=== PATIENT | male | born 1940 | race Caucasian/White ===

== ENCOUNTER 2017-05-11 08:25 | Outpatient (CLI) | payer MEDICARE, BC ==
[2017-05-11] MEDS ORDERED: Lidocaine 1% PF 10 ML AMP ONE (09:00)
[2017-05-11] MEDS ORDERED: EPINEPHrine 1 MG/ML AMP ONE (09:00)
[2017-05-11] MEDS ORDERED: Iopamidol 300 61% 50 ML VIAL FS ONE (09:00)
[2017-05-11] MEDS ORDERED: Sodium Chloride 0.9% 50 ML BAG ONE (09:00)
--- NOTE | 2017-05-11 13:29 | CT ---
CT ARTHROGRAM OF THE RIGHT SHOULDER: INDICATION: Right shoulder pain. TECHNIQUE: Multiple CT images were obtained after administration of a dilute Isovue solution within the right gl enohumeral joint. Multiplanar reformatted images were constructed from the raw data. FINDINGS: There is a full-thickness disruption of the supraspinatus with retraction to the level of the superio r humeral head. There is full-thickness tear extension to the anterior infraspinatus. There is intr atendinous delamination involving the anterior and mid infraspinatus extending up to the musculotendi nous junction. There is moderate to severe supraspinatus and infraspinatus muscular atrophy. The in traarticular course of the long head of the biceps tendon is not well seen and is felt to be related to complete disruption with retraction into the level of the bicipital groove. There is moderate to severe AC joint osteoarthrosis with a prominent inferior projecting osteophyte off of this clavicle c ausing moderate encroachment on the subjacent supraspinatus. Subscapularis appears intact. There is moderate osteoarthrosis of the glenohumeral joint. There are small marginal osteophytes affecting t he glenoid. There are calcified pleural plaques involving the right hemithorax. There is scattered emphysema. There are scattered coronary artery calcifications. There is no definite acute osseous a bnormality. IMPRESSION: 1. Full-thickness tear of the supraspinatus with retraction to the level of the superior humeral hea d. There is also a tear extension of the anterior infraspinatus with intratendinous delamination see n involving the anterior to mid aspect of the infraspinatus. There is moderate muscular atrophy of t he supraspinatus and infraspinatus. 2. Complete tear of the long head of the biceps with retraction to the level of the superior bicipit al groove. 3. Moderate glenohumeral osteoarthritis. 4. Moderate to severe acromioclavicular joint osteoarthrosis with moderate encroachment. 5. Asbetos related pleural disease and emphysema. POS: [facility]
--- NOTE | 2017-05-11 17:01 | RAD ---
RIGHT SHOULDER ARTHROGRAM: INDICATION: Right shoulder pain. TECHNIQUE: Informed consent was obtained. Preprocedure mold checker images were performed. A site overlying the right shoulder was prepped and draped in the usual sterile fashion. Buffered 1% Lidocaine was administere d to the overlying subcutaneous tissues. Under fluoroscopic guidance, a 22-gauge spinal needle was g uided down into the glenohumeral joint. There was contrast opacification of the glenohumeral joint. Total fluoroscopic time is 0.6 minutes. Total Exposure was 55.8 mGy*^m2. The patient tolerated the procedure without difficulty. FINDINGS: There is moderate glenohumeral and moderate AC joint osteoarthrosis. Calcified pleural plaques invol ving the right hemithorax. There is emphysematous change involving the right lung. IMPRESSION: Successful right shoulder arthrogram. POS: [facility]
== END 2017-05-11 08:26 | disposition home or self-care (01) ==
LOC: RAD 08:25
PROVIDERS: ATTEND Orthopaedic Surgery
DX: M25.511 Pain in right shoulder (principal); M75.101 Unspecified rotator cuff tear or rupture of right shoulder, not specified as traumatic; M19.011 Primary osteoarthritis, right shoulder; J61 Pneumoconiosis due to asbestos and other mineral fibers
CPT/HCPCS: 23350; J0171; J7050

== ENCOUNTER 2018-03-12 10:14 | Outpatient (CLI) | payer MEDICARE, BC ==
[2018-03-12 12:00] LABS: #Basophils 0.1 thou/uL (0.0-0.2); #Eosinphils 0.3 thou/uL (0.0-0.7); #Lymphocytes 1.7 thou/uL (1.20-3.40); #Monocytes 0.6 thou/uL (0.11-0.59); #Neutrophils 5.8 thou/uL (1.40-6.50); %Basophils 0.7 % (0.0-1.0); %Eosinophils 3.2 % (0.0-10.0); %Lymphocytes 20.4 % (21.0-51.0); %Monocytes 7.3 % (0.0-10.0); %Neutrophils 68.4 % (42.0-75.0); Hemoglobin 14.2 g/dL (14.0-18.0); Mean Corpuscular HGB CONC 33.5 g/dL (32.0-36.0); Mean Corpuscular Hemoglobin 32.3 pg (27.0-31.0); Mean Corpuscular Volume 96.4 fL (78.0-98.0); Mean Platelet Volume 7.1 fL (7.4-10.4); Platelet Count 304 thou/uL (130-400); RBC Distribution Width 12.7 % (11.5-14.5); Red Blood Cell (RBC) Count 4.39 mill/uL (4.70-6.10); White Blood Cell (WBC) Count 8.5 thou/uL (4.8-10.8)
[2018-03-12 12:16] LABS: Bilirubin Negative (Negative); Blood, Urine Negative (Negative); Clarity CLEAR (Clear); Glucose, Urine (Dipstick) Negative (Negative); Leukocyte Negative (Negative); Nitrite Negative (Negative); Protein, Urine (Dipstick) Negative (Neg-Trace); Specific Gravity, Urine 1.013 (1.002-1.036)
[2018-03-12 12:22] LABS: Bacteria/HPF None Seen HPF (None Seen); Hyaline Casts/LPF 0-3 HYALINE CAST LPF (0-3 Hyaline); Pathc Cast-AUWi Flag 0.14 (0-2.49); RBC/HPF 0-3 HPF (0-3); Squamous Epithelial None Seen HPF (0-3); WBC/HPF 0-3 HPF (0-3)
[2018-03-12 12:29] LABS: Anion Gap 14 mmol/L (10-20); BUN (Urea Nitrogen) 13 mg/dL (8.4-25.7); Calc. Creatinine Clearance 0 mL/min (70-130); Calcium 9.7 mg/dL (7.8-10.44); Carbon Dioxide 25 mmol/L (23-31); Chloride 103 mmol/L (98-107); Estimated GFR-MDRD 71; Glucose 95 mg/dL (83-110); Potassium 4.6 mmol/L (3.5-5.1); Sodium 137 mmol/L (136-145)
--- NOTE | 2018-03-14 06:27 | EKG ---
Test Reason : Blood Pressure : / mmHG Vent. Rate : 062 BPM Atrial Rate : 062 BPM P-R Int : 312 ms QRS Dur : 160 ms QT Int : 428 ms P-R-T Axes : 000 -58 083 degrees QTc Int : 434 ms Electronic atrial pacemaker /Atrial paced rhythm Left axis deviation Left bundle branch block Abnormal ECG No previous ECGs available Confirmed by BEN AMADOR ([id number]) on 03/14/2018 6:26:40 AM Referred By: SAY Confirmed By:BEN AMADOR
== END 2018-03-12 10:15 | disposition home or self-care (01) ==
LOC: LABBT 10:14
PROVIDERS: ATTEND Orthopaedic Surgery
DX: Z01.818 Encounter for other preprocedural examination (principal); M19.011 Primary osteoarthritis, right shoulder
CPT/HCPCS: 80048; 81001; 85025; 86850; 86900; 86901; 93005; 93010

== ENCOUNTER 2018-03-12 10:30 | Inpatient (IN) | payer MEDICARE, BC ==
[2018-03-12 10:38] VITALS: BMI 33.3
[2018-03-18] MEDS ORDERED: Tranexamic Acid 1,000 MG/10 ML VIAL ONE (06:04)
[2018-03-18] MEDS ORDERED: Sodium Chloride 0.9% 100 ML ONE (06:04)
[2018-03-18] MEDS ORDERED: CEFAZOLIN 2 GM/50 ML BAG ONE (06:04)
[2018-03-18] MEDS ORDERED: Vancomycin HCl 1.5 GM in Sodium Chloride 0.9% 250 ML 300 ML IVPB SCH ×2 (06:15→19:00)
[2018-03-18] MEDS ORDERED: Fentanyl 100 MCG/2 ML VIAL ONE (06:17)
[2018-03-18] MEDS ORDERED: Midazolam HCl 2 mg/2 ml Vial ONE (06:17)
[2018-03-18] MEDS ORDERED: Ketorolac Tromethamine 30 MG/ML VIAL IVP PRN (07:54)
[2018-03-18] MEDS ORDERED: Ropivacaine 0.2% 550 ML 550 ML NERVE BLCK SCH (07:54)
[2018-03-18] MEDS ORDERED: Ondansetron PF 4 MG/2 ML Vial IVP PRN ×2 (07:54→14:06)
[2018-03-18] MEDS ORDERED: Zolpidem Tartrate 5 MG TAB PO PRN ×2 (07:54→14:06)
[2018-03-18] MEDS ORDERED: HYDROcodone/Acetaminophen 5/325 mg Tablet PO PRN ×2 (07:54)
[2018-03-18] MEDS ORDERED: traMADol HCl 50 MG TAB PO PRN ×4 (07:54→14:06)
[2018-03-18] MEDS ORDERED: Promethazine HCl 25 MG/ML VIAL IM PRN ×2 (07:54→09:38)
[2018-03-18] MEDS ORDERED: Fentanyl 100 MCG/2 ML VIAL IV PRN (07:55)
[2018-03-18] MEDS ORDERED: Promethazine HCl 25 MG/ML VIAL SLOW IVP PRN (09:38)
[2018-03-18] MEDS ORDERED: Ondansetron HCl/PF 4 MG/2 ML Vial IVP PRN (09:38)
[2018-03-18] MEDS ORDERED: D5 1/2 NS w/20 mEq KCL 1,000 ML ONE (13:18)
[2018-03-18] MEDS ORDERED: Acetaminophen 500 MG TAB PO PRN (13:51)
[2018-03-18] MEDS ORDERED: Milk Of Magnesia 30 ML UDCUP PO PRN (14:06)
[2018-03-18] MEDS ORDERED: diphenhydrAMINE 50 MG CAP PO PRN (14:06)
[2018-03-18] MEDS ORDERED: Methocarbamol 1 GM/10 ML VIAL SLOW IVP PRN (14:06)
[2018-03-18] MEDS ORDERED: HYDROcodone/Acetaminophen 10/325 mg Tablet PO PRN ×2 (14:06)
[2018-03-18] MEDS ORDERED: Bisacodyl 10 MG SUPP PR PRN (14:06)
[2018-03-18] MEDS ORDERED: Ondansetron ODT 4 MG TAB PO PRN (14:06)
[2018-03-18] MEDS ORDERED: CEFAZOLIN/Water 2 GM/20 ML SYRINGE SLOW IVP SCH (14:06)
[2018-03-18] MEDS ORDERED: Methocarbamol 500 MG TAB PO PRN (14:06)
[2018-03-18] MEDS ORDERED: Acetaminophen 325 MG TAB PO PRN (14:06)
[2018-03-18] MEDS: Dronedarone HCl 400 MG TAB PO SCH (16:32)
[2018-03-18] MEDS: CEFAZOLIN 2 GM/50 ML-DEXTROSE 2 GM in Premix Bag 1 BAG IVPB SCH ×2 (16:32→23:32)
--- NOTE | 2018-03-18 16:33 | RAD ---
TWO VIEW RIGHT SHOULDER: 03/18/18 INDICATION: Status post RTFA, shoulder surgery. FINDINGS: There is evidence of recent right shoulder prosthesis placement with appropriate alignment. No postpr ocedural complications evident. Surgical bebeto and soft tissue air are seen. Moderate degenerative hypertrophy of the right AC joint is present. IMPRESSION: Postoperative right shoulder without acute complications. POS: [facility]
[2018-03-18] MEDS: Dextrose 5 %-0.45 % NaCl 1,000 ML IV SCH (16:38)
[2018-03-18] MEDS ORDERED: Ropivacaine 0.5% HCl/PF (150 MG/30 ML VIAL) ONE (20:03)
[2018-03-18] MEDS ORDERED: PROPOFOL 200 MG/20 ML VIAL ONE (20:03)
[2018-03-18] MEDS ORDERED: Dexamethasone 20 MG/5 ML VIAL ONE (20:03)
[2018-03-18] MEDS ORDERED: Ropivacaine 0.2% HCl/PF (40 MG/20 ML VIAL) ONE (20:03)
[2018-03-18] MEDS ORDERED: Glycopyrrolate 0.2 MG/ML 5 ML SYRINGE ONE (20:03)
[2018-03-18] MEDS ORDERED: Ondansetron PF 4 MG/2 ML Vial ONE (20:03)
[2018-03-18] MEDS: Famotidine 20 MG TAB PO SCH (20:11)
[2018-03-18] MEDS: Apixaban 5 MG TAB PO SCH (20:11)
[2018-03-18] MEDS ORDERED: MAGNESIUM GLYCINATE PO SCH (21:00)
[2018-03-19] MEDS: Dextrose 5 %-0.45 % NaCl 1,000 ML IV SCH (06:16)
[2018-03-19 07:49] VITALS: BP 128/67; TEMP 98.1
[2018-03-19] MEDS: Dronedarone HCl 400 MG TAB PO SCH (08:33)
[2018-03-19] MEDS: Apixaban 5 MG TAB PO SCH (08:35)
[2018-03-19] MEDS: Famotidine 20 MG TAB PO SCH (08:36)
[2018-03-19] MEDS ORDERED: Digoxin 0.125 MG TAB PO SCH (09:00)
[2018-03-19] MEDS ORDERED: Aspirin 81 mg Enteric Coated Tablet PO SCH (09:00)
[2018-03-19] MEDS ORDERED: [UNRECOGNIZED DRUG - OTHER] PO SCH (09:00)
--- NOTE | 2018-03-22 15:09 | OP ---
DATE OF PROCEDURE: 03/18/2018 PREOPERATIVE DIAGNOSIS: Right rotator cuff arthropathy. POSTOPERATIVE DIAGNOSIS: Right rotator cuff arthropathy. PROCEDURE PERFORMED: Right reverse total shoulder arthroplasty. SURGEON: Guero Justice MD F[employer]ERGLASS BOAT FINISHER: Dedra Almaguer PA-C. ANESTHESIOLOGIST: Dr. Deleon. ANESTHESIA: The patient received a general intubation with interscalene block. ESTIMATED BLOOD LOSS: 150 mL. TOURNIQUET TIME: None. IMPLANTS: Tornier 29 mm baseplate with a 42 x 29 mm standard glenosphere 7B stem, 42 x 6 mm poly high offset tray with two locking and two nonlocking screws. ANTIBIOTICS: Ancef 2 g, vancomycin 1.5, TXA 1. COMPLICATIONS: None. HISTORY OF PRESENT ILLNESS: Mr. Pinto is a pleasant 77-year-old male, who is seen multiple times, pain with overhead activity to 10/10. The patient had injection with good relief. The patient had a CT evidence of complete rotator cuff tear with shoulder arthritis consistent with rotator cuff arthropathy. I discussed with the patient the risks and benefits of a right reverse shoulder arthroplasty including pain, scar, bleeding, infection, damage to vital structures, decreased range of motion and strength, nonunion, malunion, fracture, need for further surgeries, failure of procedure, continued pain, despite surgical intervention. The patient understood these risks and benefits and would like to proceed. DESCRIPTION OF PROCEDURE: A time-out was performed. The patient's right upper extremity as the operative site based on site, consents and markings. After time-out, the patient's right upper extremity was prepped. After right upper extremity was prepped and draped in a sterile fashion, the patient had a deltopectoral incision, made down through skin, came down onto the raphe between the pec and the junction of the conjoined, which was dissected and came into the plane, which we elevated to expose the patient's subscapularis, came down to the subscapularis. There was no obvious remnant of the biceps. We came down and took down the entire subscapularis. This was circumferentially released. I then released the remnant cuff from the anterior aspect and there was nothing remaining. I inverted the head into position, we used our guide to cut and the patient agreed to the angle 135 to cut the head, which we removed. We then started broaching, broached up to a size 8, which was too high, went to a 7, reamed, cut to ensure that we had a good center of interface. We took the inferior osteophytes off. We placed the subscapularis over the humerus and moved to our glenoid. We placed retractors anteriorly and posteriorly. We got 360-degree release, completely exposed inferiorly. We stayed on bone with blunt dissection as well as cautery, stayed away from the axillary nerve. We then completely exposed the entire glenoid. We then placed our center-center guide. We reamed for 29. We then used our cleaning device. We noticed that we needed to put a larger 42 mm glenosphere because of the size of the glenoid, we cleaned off this. We then center hole, placed our baseplate for anterior and posterior nonlocking screws and our superior and inferior locking screws in position and a good stable baseplate. We then moved and placed our glenosphere. After we had cleaned circumferentially all the bone and soft tissues, placed it and got a good firm fit. We then moved back to humerus and placed a high offset tray at 6 o'clock position, reduced the shoulder. We had good overall stability. No shuck. The patient in traction and rotation of head elevated, position and alignment. We then removed the implant, got our final implant, impacted in place. After we drilled 3 holes site of the subscap down with W stitches through which he passed through the stem to help with stability, and passed this into place. We sewed the subscapularis into place and W stitches, had a good firm subscapularis repair. We then washed. We closed 0, 2-0, and bebeto. The patient will be admitted overnight. If the patient is doing well and comfortable, we will discharge him home. Job ID: [id number]
== END 2018-03-19 10:30 | disposition home or self-care (01) | DRG 483 ==
LOC: SURG A 03-18 05:32
PROVIDERS: ADMIT Orthopaedic Surgery; ATTEND Orthopaedic Surgery
PROC: 0RRJ00Z Replacement of Right Shoulder Joint with Reverse Ball and Socket Synthetic Substitute, Open Approach (ICD-10-PCS; principal; 2018-03-18)
PROC: 3E0T3BZ Introduction of Anesthetic Agent into Peripheral Nerves and Plexi, Percutaneous Approach (ICD-10-PCS; 2018-03-18)
DX: M75.121 Complete rotator cuff tear or rupture of right shoulder, not specified as traumatic (principal); I10 Essential (primary) hypertension; I25.10 Atherosclerotic heart disease of native coronary artery without angina pectoris; E78.5 Hyperlipidemia, unspecified; Z95.0 Presence of cardiac pacemaker; Z85.01 Personal history of malignant neoplasm of esophagus; K21.9 Gastro-esophageal reflux disease without esophagitis; I25.2 Old myocardial infarction; Z79.01 Long term (current) use of anticoagulants; Z79.82 Long term (current) use of aspirin; G56.01 Carpal tunnel syndrome, right upper limb
CPT/HCPCS: A4306; G8978-GP-CI; G8979-GP-CI; G8980-GP-CI; G8987-GO-CI; G8988-GO-CI; G8989-GO-CI; J1100; J2250; J2405; J2704; J2795; J3010; J3370; J7050

== ENCOUNTER 2019-10-24 07:23 | Outpatient (CLI) | payer MEDICARE, BC, OTHER ==
--- NOTE | 2019-10-24 11:08 | RAD ---
PA AND LATERAL CHEST: Date: 10/24/2019 HISTORY: Preop. No recent comparison. Comparison made to a portable chest from 10/20/2013. FINDINGS: Lungs show diffuse increased interstitial markings which may represent chronic interstitial process. No evidence of vascular congestion. Heart size upper normal and stable. Dual lead transvenous pacemak er device is unchanged from prior study. No effusion. No focal infiltrate or consolidation. Right lanny ulder prosthesis. Degenerative spine changes with mild wedging of several mid thoracic vertebra. Scattered nodularity in the periphery of both lungs, slightly more pronounced on the left which may r epresent small granuloma. IMPRESSION: Chronic appearing changes as described above. POS: [facility]
[2019-10-24 14:03] LABS: #Eosinphils 0.3 thou/uL (0.0-0.7); #Lymphocytes 1.8 thou/uL (1.20-3.40); #Monocytes 0.7 thou/uL (0.11-0.59); #Neutrophils 4.7 thou/uL (1.40-6.50); %Basophils 0.5 % (0.0-1.0); %Lymphocytes 24.4 % (21.0-51.0); Hemoglobin 13.9 g/dL (14.0-18.0); Mean Corpuscular Hemoglobin 32.1 pg (27.0-31.0); Mean Corpuscular Volume 97.4 fL (78.0-98.0); Mean Platelet Volume 7.7 fL (7.4-10.4); Platelet Count 265 thou/uL (130-400); RBC Distribution Width 12.6 % (11.5-14.5); Red Blood Cell (RBC) Count 4.32 mill/uL (4.70-6.10); White Blood Cell (WBC) Count 7.6 thou/uL (4.8-10.8)
[2019-10-25 14:14] LABS: SARS-CoV-2 MS2 Positive; SARS-CoV-2 N Gene Negative; SARS-CoV-2 S Gene Negative; SARS-CoV-2 by NAA Not Detected (NotDetected); SARS-CoV-2 orf1ab Negative
--- NOTE | 2019-10-25 15:37 | EKG ---
Test Reason : PREOP Blood Pressure : / mmHG Vent. Rate : 061 BPM Atrial Rate : 089 BPM P-R Int : 000 ms QRS Dur : 184 ms QT Int : 464 ms P-R-T Axes : 000 -47 119 degrees QTc Int : 467 ms Poor data quality, interpretation may be adversely affected Electronic atrial pacemaker Left axis deviation Left bundle branch block Abnormal ECG Confirmed by ZOE BOWENS ([id number]) on 10/25/2019 3:36:56 PM Referred By: JOHNNY Confirmed By:ZOE BOWENS
== END 2019-10-24 07:24 | disposition home or self-care (01) ==
LOC: LABBT 07:23 → SCSRAD 07:24
PROVIDERS: ATTEND Orthopaedic Surgery
DX: Z01.818 Encounter for other preprocedural examination (principal); Z11.59 Encounter for screening for other viral diseases; G56.01 Carpal tunnel syndrome, right upper limb
CPT/HCPCS: 71046; 85025; 87635; 93005; 93010; U0003

== ENCOUNTER 2019-10-27 06:49 | Day surgery (SDC) | payer MEDICARE, BC ==
[2019-10-27] MEDS ORDERED: Lidocaine 1% w/Epinephrine 1:100K 20 ML VIAL ONE (08:28)
[2019-10-27] MEDS ORDERED: Midazolam HCl 2 mg/2 ml Vial ONE (08:57)
[2019-10-27] MEDS ORDERED: PROPOFOL 20 ML ONE (09:02)
[2019-10-27] MEDS ORDERED: Meperidine HCl/PF 25 MG/ML VIAL ONE (09:02)
--- NOTE | 2019-10-28 09:40 | OP ---
DATE OF PROCEDURE: 10/27/2019 PREOPERATIVE DIAGNOSIS: Right carpal tunnel syndrome. POSTOPERATIVE DIAGNOSIS: Right carpal tunnel syndrome. PROCEDURE PERFORMED: Right open carpal tunnel release. SNACK STEWARD: None. ANESTHESIOLOGIST: Nazia Cuevas MD ANESTHESIA: The patient received a TIVA with 13 mL of 1% lidocaine with epinephrine. ESTIMATED BLOOD LOSS: Less than 10 mL. TOURNIQUET TIME: 7 minutes at 250 mL. ANTIBIOTICS: Ancef 2 g. COMPLICATIONS: None. HISTORY OF PRESENT ILLNESS: Mr. Pinto is an 79-year-old male with long history of right carpal tunnel syndrome. I discussed with him the risks and benefits of right carpal tunnel release to include, pain, scar, bleeding, infection, damage to vital structures, nerves, arteries, and tendons, failure of procedure, wound complications, need for further surgery. The patient understood risks and benefits of procedure and elected to proceed. DESCRIPTION OF PROCEDURE: Time-out was performed designating the patient's right upper extremity as the operative site based on site, consents, and marked. After time-out performed, the patient's right upper extremity was prepped and draped in sterile fashion. Tourniquet was brought up and left for 7 minutes. An incision was made in line distal to the flexor crease and proximal to the Grant's cardinal line, down through skin. We dissected down through fat, down the patient's palmar fascia. We came down on the dissected sharply through the palmar fascia. I placed a hemostat underneath the patient's palmaris brevis and transverse transcarpal ligament, which we dissected from distal to proximal and sharply exposed the nerve. We ensured released the entirety of it of the transcarpal ligament as well as some of the palmar fascia and the palmaris longus, washed, ensured that there was no adhesions, tourniquet let down after 7 minutes, controlled bleeding, washed, closed with a running 4-0 nylon stitch. I injected about 4 mL of lidocaine 1% before the procedure and about 9 mL postprocedure. The patient will be placed in a splint and soft tissue dressing, will follow up me in about 10 to 12 days. Job ID: [id number]
== END 2019-10-27 10:35 | disposition home or self-care (01) ==
LOC: SDC 06:49
PROVIDERS: ATTEND Orthopaedic Surgery
PROC: 01N50ZZ Release Median Nerve, Open Approach (ICD-10-PCS; principal; 2019-10-27)
DX: G56.01 Carpal tunnel syndrome, right upper limb (principal); I10 Essential (primary) hypertension; I25.10 Atherosclerotic heart disease of native coronary artery without angina pectoris; E78.5 Hyperlipidemia, unspecified; I25.2 Old myocardial infarction; K21.9 Gastro-esophageal reflux disease without esophagitis; Z87.891 Personal history of nicotine dependence; Z79.01 Long term (current) use of anticoagulants; Z79.82 Long term (current) use of aspirin; Z79.899 Other long term (current) drug therapy; Z88.5 Allergy status to narcotic agent; Z88.8 Allergy status to other drugs, medicaments and biological substances; Z95.0 Presence of cardiac pacemaker
CPT/HCPCS: J0690; J2175; J2250; J2704

== ENCOUNTER 2022-10-23 10:50 | Outpatient (CLI) | payer MEDICARE, BC ==
[2022-10-23 12:56] LABS: #Basophils 0.1 10x3/uL (0.0-0.2); #Eosinphils 0.4 10x3/uL (0.0-0.5); #Monocytes 0.7 10x3/uL (0.0-1.1); #Neutrophils 4.6 10x3/uL (1.5-8.4); %Basophils 0.7 % (0.0-2.0); %Eosinophils 5.1 % (0.0-6.0); %Lymphocytes 25.4 % (18.0-47.0); %Monocytes 8.9 % (0.0-10.0); %Neutrophils 59.6 % (40.0-75.0); Hemoglobin 13.6 g/dL (13.5-17.5); Mean Corpuscular HGB CONC 32.9 g/dL (32.0-36.0); Mean Corpuscular Hemoglobin 31.8 pg (27.0-33.0); Mean Corpuscular Volume 96.5 fl (81.2-95.1); Mean Platelet Volume 9.7 fl (7.4-10.4); Platelet Count 253 10x3/uL (150-450); RBC Distribution Width 13.2 % (11.5-14.5); Red Blood Cell (RBC) Count 4.28 10x6/uL (4.32-5.72); White Blood Cell (WBC) Count 7.7 10x3/uL (3.5-10.5)
[2022-10-23 13:18] LABS: Prothrombin Time 10.8 sec (9.5-12.1)
[2022-10-23 13:20] LABS: Anion Gap 16 mmol/L (10-20); BUN (Urea Nitrogen) 24 mg/dL (8.4-25.7); Calc. Creatinine Clearance 0 mL/min (70-130); Calcium 9.5 mg/dL (7.8-10.44); Carbon Dioxide 24 mmol/L (23-31); Chloride 102 mmol/L (98-107); Estimated GFR 63; Glucose 101 mg/dL (83-110); Potassium 4.6 mmol/L (3.5-5.1); Sodium 137 mmol/L (136-145)
== END 2022-10-23 10:51 | disposition home or self-care (01) ==
LOC: LABBT 10:50
PROVIDERS: ATTEND Orthopaedic Surgery
DX: Z01.812 Encounter for preprocedural laboratory examination (principal); M17.11 Unilateral primary osteoarthritis, right knee
CPT/HCPCS: 80048; 85025; 85610; 87081

== ENCOUNTER 2022-10-28 05:31 | Inpatient (IN) | payer MEDICARE, BC ==
[2022-10-23 11:46] VITALS: BMI 31.2
[2022-10-28] MEDS ORDERED: Tranexamic Acid 1,000 MG/10 ML VIAL ONE (06:07)
[2022-10-28] MEDS ORDERED: Vancomycin (BATCH) 1.5 GRAM/300 ML BAG ONE (06:07)
[2022-10-28] MEDS ORDERED: Sodium Chloride 0.9% 100 ML ONE ×2 (06:07→07:01)
[2022-10-28] MEDS ORDERED: EPINEPHrine 1 MG/ML AMP ONE (06:23)
[2022-10-28] MEDS ORDERED: Bupivacaine 0.25% HCL 30 ML VIAL ONE (06:23)
[2022-10-28] MEDS ORDERED: fentaNYL PF 100 MCG/2 ML SYRINGE ONE (06:24)
[2022-10-28] MEDS ORDERED: Midazolam HCl 2 mg/2 ml Vial ONE ×2 (06:24→06:35)
[2022-10-28] MEDS ORDERED: Dexmedetomidine 200 MCG/2 ML VIAL ONE (06:25)
[2022-10-28] MEDS ORDERED: Bupivacaine PF 0.5% 30 ML VIAL ONE (06:35)
[2022-10-28] MEDS ORDERED: fentaNYL 50 mcg/mL 1 mL Vial ONE (06:35)
[2022-10-28] MEDS ORDERED: Ondansetron PF 4 MG/2 ML Vial ONE (06:43)
[2022-10-28] MEDS ORDERED: Ropivacaine 0.5% HCl/PF (150 MG/30 ML VIAL) ONE (06:43)
[2022-10-28] MEDS ORDERED: PROPOFOL 200 MG/20 ML VIAL ONE (06:43)
[2022-10-28] MEDS ORDERED: CEFAZOLIN 2 GM VIAL ONE (07:01)
[2022-10-28] MEDS ORDERED: fentaNYL 50 mcg/mL 1 mL Vial SLOW IVP PRN (07:13)
[2022-10-28] MEDS ORDERED: Ondansetron PF 4 MG/2 ML Vial IVP PRN ×2 (07:15→09:14)
[2022-10-28] MEDS ORDERED: Ropivacaine 0.2% 550 ML 550 ML NERVE BLCK SCH (07:15)
[2022-10-28] MEDS ORDERED: Zolpidem Tartrate 5 MG TAB PO PRN ×2 (07:15→09:14)
[2022-10-28] MEDS ORDERED: traMADol HCl 50 MG TAB PO PRN (07:15)
[2022-10-28] MEDS ORDERED: Promethazine HCl 25 MG/ML VIAL IM PRN ×3 (07:15→09:23)
[2022-10-28] MEDS ORDERED: HYDROcodone/Acetaminophen 10/325 mg Tablet PO PRN (07:15)
[2022-10-28] MEDS ORDERED: HYDROmorphone 2 MG/ML VIAL ONE (08:13)
[2022-10-28] MEDS ORDERED: Acetaminophen 325 MG TAB PO PRN (09:14)
[2022-10-28] MEDS ORDERED: HYDROmorphone 2 MG/ML VIAL SLOW IVP PRN (09:23)
[2022-10-28] MEDS ORDERED: Ondansetron HCl/PF 4 MG/2 ML Vial IVP PRN (09:23)
[2022-10-28] MEDS: Sodium Chloride 0.9% 1,000 ML IV SCH ×2 (09:30→20:26)
[2022-10-28] MEDS ORDERED: Ketorolac Tromethamine 30 MG/ML VIAL ONE (11:03)
[2022-10-28] MEDS: Ketorolac Tromethamine 30 MG/ML VIAL IVP SCH ×3 (11:10→23:39)
[2022-10-28] MEDS: CEFAZOLIN 2 GM in Sodium Chloride 0.9% 100 ML IVPB SCH ×2 (15:38→23:39)
[2022-10-28] MEDS: diphenhydrAMINE 25 MG CAP PO PRN (20:27)
[2022-10-28] MEDS ORDERED: Flecainide 50 MG TAB PO SCH (21:00)
[2022-10-28] MEDS ORDERED: Gabapentin 300 MG CAP PO SCH (21:00)
[2022-10-28] MEDS ORDERED: Tamsulosin HCl 0.4 MG CAP PO SCH (21:00)
[2022-10-28] MEDS ORDERED: Digoxin 0.125 MG TAB PO SCH (21:00)
[2022-10-29] MEDS: traMADol HCl 50 MG TAB PO PRN ×2 (03:58→09:16)
[2022-10-29] MEDS: diphenhydrAMINE 25 MG CAP PO PRN ×2 (03:59→22:27)
[2022-10-29 05:03] LABS: Hematocrit 31.9 % (42.0-52.0); Hemoglobin 10.4 g/dL (14.0-18.0); Mean Corpuscular HGB CONC 32.6 g/dL (32.0-36.0); Mean Corpuscular Hemoglobin 32.5 pg (27.0-31.0); Mean Corpuscular Volume 99.7 fl (78.0-98.0); Mean Platelet Volume 9.5 fL (7.4-10.4); Platelet Count 182 10x3/uL (130-400); RBC Distribution Width 13.5 % (11.5-14.5); White Blood Cell (WBC) Count 11.3 10x3/uL (4.8-10.8)
[2022-10-29] MEDS: Ketorolac Tromethamine 30 MG/ML VIAL IVP SCH ×3 (05:42→17:59)
[2022-10-29] MEDS: Sodium Chloride 0.9% 1,000 ML IV SCH ×2 (07:27→14:25)
[2022-10-29] MEDS ORDERED: Cholecalciferol 1,000 UNITS (25 MCG) TAB PO SCH (09:00)
[2022-10-29] MEDS ORDERED: Non-Formulary Item 1 EACH (Cholecalciferol (Vitamin D3) [Vitamin D3] 2,000 UNIT Capsule) PO SCH (09:00)
[2022-10-29] MEDS ORDERED: Non-Formulary Item 1 EACH (Triamterene/Hydrochlorothiazid [Triamterene-Hctz 37.5-25 Mg Cp PO SCH (09:00)
[2022-10-29] MEDS ORDERED: Non-Formulary Item 1 EACH (Mv-Min/Folic/K1/Lycopen/Lutein [Centrum Silver Men Tablet] 1 E PO SCH (09:00)
[2022-10-29] MEDS ORDERED: Multivitamin W/ Minerals 1 TAB PO SCH ×2 (09:00)
[2022-10-29] MEDS ORDERED: Flecainide 50 MG TAB PO SCH (09:00)
[2022-10-29] MEDS ORDERED: MAGNESIUM AMINO ACID CHELATE PO SCH ×3 (09:00)
[2022-10-29] MEDS: Gabapentin 300 MG CAP PO SCH ×2 (09:17→21:55)
[2022-10-29] MEDS: Ferrous Gluconate 324 MG TAB PO SCH ×2 (09:17→17:59)
[2022-10-29] MEDS: Senokot S 8.6-50 MG TAB PO SCH ×2 (09:17→21:58)
[2022-10-29] MEDS: Cholecalciferol 1,000 UNITS (25 MCG) TAB PO SCH (09:17)
[2022-10-29] MEDS: Flecainide 50 MG TAB PO SCH ×2 (09:18→21:58)
[2022-10-29] MEDS: Apixaban 5 MG TAB PO SCH ×2 (09:18→21:55)
[2022-10-29] MEDS: Multivitamin W/ Minerals 1 TAB PO SCH (09:18)
[2022-10-29] MEDS: Triamterene/Hydrochlorothiazide 37.5 mg/25 mg Tablet PO SCH ×2 (09:19→09:21)
[2022-10-29] MEDS ORDERED: Loratadine 10 MG TAB PO SCH (09:45)
[2022-10-29] MEDS: HYDROcodone/Acetaminophen 10/325 mg Tablet PO PRN ×2 (11:27→21:56)
[2022-10-29] MEDS ORDERED: Tamsulosin HCl 0.4 MG CAP PO SCH (21:00)
[2022-10-29] MEDS ORDERED: Non-Formulary Item 1 EACH (Dexlansoprazole [Dexilant] 60 MG Cap.Dr.Bp) PO SCH (21:00)
[2022-10-29] MEDS ORDERED: Digoxin 0.125 MG TAB PO SCH (21:00)
[2022-10-30] MEDS: Ketorolac Tromethamine 30 MG/ML VIAL IVP SCH ×2 (00:16→05:36)
[2022-10-30] MEDS: Sodium Chloride 0.9% 1,000 ML IV SCH (00:21)
[2022-10-30] MEDS: diphenhydrAMINE 25 MG CAP PO PRN (05:39)
[2022-10-30 06:08] LABS: Hematocrit 28.1 % (42.0-52.0); Hemoglobin 9.1 g/dL (14.0-18.0); Mean Corpuscular HGB CONC 32.4 g/dL (32.0-36.0); Mean Corpuscular Hemoglobin 32.3 pg (27.0-31.0); Mean Corpuscular Volume 99.6 fl (78.0-98.0); Mean Platelet Volume 9.9 fL (7.4-10.4); Platelet Count 161 10x3/uL (130-400); RBC Distribution Width 13.7 % (11.5-14.5); Red Blood Cell (RBC) Count 2.82 mill/uL (4.70-6.10); White Blood Cell (WBC) Count 11.3 10x3/uL (4.8-10.8)
[2022-10-30 08:10] VITALS: BP 132/63; TEMP 98.2
[2022-10-30] MEDS: Gabapentin 300 MG CAP PO SCH (08:34)
[2022-10-30] MEDS: Ferrous Gluconate 324 MG TAB PO SCH (08:34)
[2022-10-30] MEDS: Cholecalciferol 1,000 UNITS (25 MCG) TAB PO SCH (08:34)
[2022-10-30] MEDS: Multivitamin W/ Minerals 1 TAB PO SCH (08:35)
[2022-10-30] MEDS: HYDROcodone/Acetaminophen 10/325 mg Tablet PO PRN (08:36)
[2022-10-30] MEDS: Senokot S 8.6-50 MG TAB PO SCH (08:36)
[2022-10-30] MEDS: Triamterene/Hydrochlorothiazide 37.5 mg/25 mg Tablet PO SCH ×2 (08:37→08:38)
[2022-10-30] MEDS: Flecainide 50 MG TAB PO SCH (08:37)
[2022-10-30] MEDS: Apixaban 5 MG TAB PO SCH (08:37)
[2022-10-30] MEDS ORDERED: Loratadine 10 MG TAB PO SCH (09:00)
== END 2022-10-30 10:45 | disposition home or self-care (01) | DRG 470 ==
LOC: SDC 05:31 → SURG A 09:14 → OBSVTOIN 10-29 08:58
PROVIDERS: ADMIT Orthopaedic Surgery; ATTEND Orthopaedic Surgery
PROC: 0SRC0J9 Replacement of Right Knee Joint with Synthetic Substitute, Cemented, Open Approach (ICD-10-PCS; principal; 2022-10-28)
DX: M17.11 Unilateral primary osteoarthritis, right knee (principal); G62.9 Polyneuropathy, unspecified; I10 Essential (primary) hypertension; I25.10 Atherosclerotic heart disease of native coronary artery without angina pectoris; K21.9 Gastro-esophageal reflux disease without esophagitis; Z95.0 Presence of cardiac pacemaker; I25.2 Old myocardial infarction; Z90.49 Acquired absence of other specified parts of digestive tract; Z98.890 Other specified postprocedural states; Z87.891 Personal history of nicotine dependence
CPT/HCPCS: 36415; 85027; A4306; C1776; J0171; J1170; J1885; J2250; J2405; J2704; J2795; J3010; J3370; J3490; S0020

== ENCOUNTER 2024-10-24 06:43 | Day surgery (SDC) | payer MEDICARE, BC ==
[2024-10-21 15:02] VITALS: BMI 32.1
[2024-10-24] MEDS ORDERED: PROPOFOL 20 ML ONE (08:43)
== END 2024-10-24 11:22 | disposition home or self-care (01) ==
LOC: SDC 06:43
PROVIDERS: ATTEND Internal Medicine
PROC: 0D5K8ZZ Destruction of Ascending Colon, Via Natural or Artificial Opening Endoscopic (ICD-10-PCS; principal; 2024-10-24)
PROC: 0D5L8ZZ Destruction of Transverse Colon, Via Natural or Artificial Opening Endoscopic (ICD-10-PCS; 2024-10-24)
PROC: 0D5N8ZZ Destruction of Sigmoid Colon, Via Natural or Artificial Opening Endoscopic (ICD-10-PCS; 2024-10-24)
DX: D12.2 Benign neoplasm of ascending colon (principal); D12.5 Benign neoplasm of sigmoid colon; D12.3 Benign neoplasm of transverse colon; I48.91 Unspecified atrial fibrillation; K64.8 Other hemorrhoids; K64.4 Residual hemorrhoidal skin tags; K21.9 Gastro-esophageal reflux disease without esophagitis; I10 Essential (primary) hypertension; Z79.82 Long term (current) use of aspirin; Z79.01 Long term (current) use of anticoagulants; Z79.899 Other long term (current) drug therapy; Z86.0101 Personal history of adenomatous and serrated colon polyps; Z80.0 Family history of malignant neoplasm of digestive organs
CPT/HCPCS: 45385; J2704; J3010; 88305